=== PATIENT | female | born 1945 | race Caucasian/White ===

== ENCOUNTER 2016-12-22 22:42 | Emergency (ER) | payer MEDICARE ==
--- NOTE | 2016-12-22 23:51 | Emergency Department Record ---
History of Present Illness - General Chief complaint: Extremity Problem Stated complaint: ARM RED AND HOT Time Seen by Provider: 12/22/16 23:23 Source: Patient Mode of Arrival: Ambulatory Limitations: No limitations - History of Present Illness Initial comments: The patient is here due to R arm cellulitis. She was seen in the yesterday and started on Clindamycin orally. Today the redness is very slightly worse than yesterday. The patient states the pain is the same in the arm. She denies any fever, chills, or trauma. MD Complaint: Extremity pain Onset/Timin -: Days(s) Location: Right, Elbow, Forearm Severity scale (1-10): 6 Quality: Burning, Sharp Consistency: Constant, Getting worse Improves with: Nothing Worsens with: Palpation - Related Data Home Medications Medication Instructions Recorded Confirmed Last Taken Metoprolol Tartrate [Lopressor] 50 mg PO BID 08/28/14 12/06/15 12/22/16 Metformin HCl 500 mg PO BID 06/11/15 12/22/16 12/22/16 Atorvastatin Calcium 10 mg PO DAILY 90 Days 12/21/16 12/22/16 Allergies Allergy/AdvReac Type Severity Reaction Status Date / Time lisinopril Allergy Severe PT UNSURE Verified 12/06/15 18:15 OF REACTION Travel Screening - Travel/Exposure Within Last 30 Days Have you traveled within the last 30 days?: No - Travel Symptoms Symptom Screening: None Review of Systems Constitutional: Reports: Malaise. Denies: Chills, Fever Eyes: Denies: Eye discharge ENT: Denies: Congestion Respiratory: Denies: Cough, Dyspnea Past Medical History - SOCIAL HISTORY Smoking Status: Never smoker - RESPIRATORY Hx Respiratory Disorders: No - CARDIOVASCULAR Hx Cardio Disorders: Yes Hx Hypertension: Yes Comment:: high cholesterol - NEURO Hx Neuro Disorders: No - GI Hx GI Disorders: No - Hx Genitourinary Disorders: Yes Hx Renal Disease: Yes (only has L) - ENDOCRINE Hx Endocrine Disorders: Yes Hx Diabetes: Yes - MUSCULOSKELETAL Hx Musculoskeletal Disorders: Yes Hx Back Injury: Yes - PSYCH Hx Psych Problems: No - HEMATOLOGY/ONCOLOGY Hx Hematology/Oncology Disorders: No Family Medical History Any Significant Family History?: Yes Hx Diabetes: Father, Mother Hx Heart Disease: Father, Mother, Grandparents Physical Exam - General General Appearance: Alert, Cooperative, No acute distress - Head Head exam: Atraumatic, Normocephalic, Normal inspection - Eye Eye exam: Normal appearance, PERRL - Neck Neck exam: Normal inspection, Full ROM. negative: Tenderness - Respiratory Respiratory exam: Normal lung sounds bilaterally. negative: Respiratory distress - Cardiovascular Cardiovascular Exam: Regular rate, Normal rhythm, Normal heart sounds - GI/Abdominal GI/Abdominal exam: Soft, Normal bowel sounds. negative: Tenderness - Extremities Extremities exam: Full ROM, Normal capillary refill, Tenderness. negative: Normal inspection (There is a cellulitis to the R lateral forearm.) Image of Full Body: 1 - Cellulitis. - Skin Skin exam: Erythema (to the R lateral forearm.), Rash Course Vital Signs 12/22/16 23:13 Temperature 97.9 F Pulse Rate [ 78 Pulse Ox Probe] Respiratory 18 Rate Blood Pressure 173/73 [Left Arm] Pulse Ox 96 - Reevaluation(s) Reevaluation #1: The patient is doing well at this time. She is to return to the ER at 9am for repeat IV Abx and a re-evaluation. 12/23/16 00:44 Medical Decision Making - Lab Data Result diagrams: 12/23/16 00:04 12/23/16 00:04 Disposition Disposition: Discharge Clinical Impression: Cellulitis Qualifiers: Site of cellulitis: unspecified site Qualified Code(s): L03.90 - Cellulitis, unspecified Disposition: Home, Self-Care Condition: (1) Good Instructions: Cellulitis (ED) Additional Instructions: Please continue your regular medicines and please return to the ER at 9am for recheck and repeat IV Abx. Forms: Patient Portal Access Time of Disposition: 00:46 Quality - Quality Measures Quality Measures: N/A - Blood Pressure Screening View Details: Yes Does Patient Have Any of the Following: No Blood Pressure Classification: Hypertensive Reading Systolic Measurement: 173 Diastolic Measurement: 73 Screening for High Blood Pressure: < Pre-Hypertensive BP, F/U Documented > [ G8950] Pre-Hypertensive Follow-up Interventions: Referral to alternative/primary care provider.
[2016-12-23 00:08] LABS: BASO % 0.4 % (0-6); EOS % 2.7 % (0-6); GRAN % 61.4 % (47-80); HEMATOCRIT 39.3 % (35.0-47.0); LYMPH % 27.3 % (16-45); MEAN CELL VOLUME 91.2 fl (81-97); MEAN CORPUSCULAR HEMOGLOBIN 30.2 pg (27-33); MEAN CORPUSCULAR HGB CONC 33.1 g/dl (32-36); MONO % 8.2 % (0-9); PLATELET COUNT 299 K/uL (130-400); RED BLOOD COUNT 4.31 M/uL (3.80-5.40); WHITE BLOOD COUNT W/O DIFF 8.9 K/uL (4.2-12.2)
[2016-12-23] MEDS: CLINDAMYCIN 600MG/4ML VIAL 600 MG in 0.9 % SODIUM CHLORIDE 100ML 100 ML IV ONE (00:08)
[2016-12-23 00:23] LABS: ANION GAP 10.5 (7-16); BLOOD UREA NITROGEN 22 mg/dL (7-17); C-REACTIVE PROTEIN 5.1 mg/dL (0.0-0.9); CARBON DIOXIDE 24.5 mmol/L (22-30); CREATININE 0.8 mg/dL (0.52-1.04); EST GLOMERULAR FILTRATION RATE > 60 ml/min; GLUCOSE,RANDOM 107 mg/dL (70-110)
== END 2016-12-23 01:07 | disposition home or self-care (01) ==
LOC: ER 22:42
DX: L03.113 Cellulitis of right upper limb (principal)
CPT/HCPCS: 80048; 85025; 86140; 96365; 99284

== ENCOUNTER 2016-12-23 08:54 | Emergency (ER) | payer MEDICARE ==
[2016-12-23] MEDS: CLINDAMYCIN 600MG/50ML PREMIX 600 MG/50 ML BAG IVPB ONE (09:13)
--- NOTE | 2016-12-23 10:00 | Emergency Department Record ---
History of Present Illness - General Chief Complaint: Wound, check Stated Complaint: WOUND RECHECK Time Seen by Provider: 12/23/16 09:52 Source: Patient, RN notes reviewed Mode of arrival: Ambulatory - History of Present Illness Initial Comments: here for a recheck of arm infection and skin abscesses times two and getting better. Seen at [facility] 2 days ago and on clindamycin 300 mg every 6 hours. Patient seen in Ed last night and given clindamycin 600 mg IV and she came for a recheck of the right arm. The cellulitis is improving today. She isn't toxic and she is visiting from [facility]. Initial Visit For: Cellulitis, Other Returns Today for: Wound recheck Symptoms Since Prior Visit: No new symptoms Associated Symptoms: None Treatments Prior to Arrival: Dressings - Related Data Home Medications Medication Instructions Recorded Confirmed Last Taken Metoprolol Tartrate [Lopressor] 50 mg PO BID 08/28/14 12/23/16 12/22/16 Metformin HCl 500 mg PO BID 06/11/15 12/23/16 12/22/16 Atorvastatin Calcium 10 mg PO DAILY 90 Days 12/21/16 12/23/16 12/22/16 Previous Rx's Medication Instructions Recorded Sulfamethoxazole/Trimethoprim 1 each PO BID #20 tablet 12/23/16 [Bactrim Ds Tablet] Allergies Allergy/AdvReac Type Severity Reaction Status Date / Time lisinopril Allergy Severe PT UNSURE Verified 12/23/16 09:03 OF REACTION Travel Screening - Travel/Exposure Within Last 30 Days Have you traveled within the last 30 days?: No Review of Systems Reviewed: No additional complaints except as noted below Constitutional: Reports: As per HPI. Denies: Chills, Fever, Malaise, Night sweats, Weakness, Weight change Eyes: Reports: As per HPI. Denies: Eye discharge, Eye pain, Photophobia, Vision change ENT: Reports: As per HPI. Denies: Congestion, Dental pain, Ear pain, Epistaxis , Hearing loss, Throat pain Respiratory: Reports: As per HPI. Denies: Cough, Dyspnea, Hemoptysis, Stridor, Wheezes Cardiovascular: Reports: As per HPI. Denies: Arrhythmia, Chest pain, Dyspnea on exertion, Edema, Murmurs, Orthopnea, Palpitations, Paroxysmal nocturnal dyspnea, Rheumatic Fever, Syncope Endocrine: Reports: As per HPI. Denies: Fatigue, Heat or cold intolerance, Polydipsia, Polyuria Gastrointestinal: Reports: As per HPI. Denies: Abdominal pain, Constipation, Diarrhea, Hematemesis, Hematochezia, Melena, Nausea, Vomiting Genitourinary: Reports: As per HPI. Denies: Abnormal menses, Discharge, Dyspareunia, Dysuria, Frequency, Hematuria, Incontinence, Retention, Urgency Musculoskeletal: Reports: As per HPI. Denies: Arthralgia, Back pain, Gout, Joint swelling, Myalgia, Neck pain Skin: Reports: As per HPI, Rash. Denies: Bruising, Change in color, Change in hair/nails, Lesions, Pruritus Neurological: Reports: As per HPI. Denies: Abnormal gait, Confusion, Headache, Numbness, Paresthesias, Seizure, Tingling, Tremors, Vertigo, Weakness Psychiatric: Reports: As per HPI. Denies: Anxiety, Auditory hallucinations, Depression, Homicidal thoughts, Suicidal thoughts, Visual hallucinations Hematological/Lymphatic: Reports: As per HPI. Denies: Anemia, Blood Clots, Easy bleeding, Easy bruising, Swollen glands Past Medical History - SOCIAL HISTORY Smoking Status: Never smoker Alcohol Use: None Drug Use: None - RESPIRATORY Hx Respiratory Disorders: No - CARDIOVASCULAR Hx Cardio Disorders: Yes Hx Hypertension: Yes Comment:: high cholesterol - NEURO Hx Neuro Disorders: No - GI Hx GI Disorders: No - Hx Genitourinary Disorders: Yes Hx Renal Disease: Yes (only has L) - ENDOCRINE Hx Endocrine Disorders: Yes Hx Diabetes: Yes - MUSCULOSKELETAL Hx Musculoskeletal Disorders: Yes Hx Back Injury: Yes - PSYCH Hx Psych Problems: No - HEMATOLOGY/ONCOLOGY Hx Hematology/Oncology Disorders: No Family Medical History Any Significant Family History?: Yes Hx Diabetes: Father, Mother Hx Heart Disease: Father, Mother, Grandparents Physical Exam - General General Appearance: Alert, Oriented x3, Cooperative, Mild distress - Head Head exam: Normal inspection - Eye Eye exam: Normal appearance, PERRL Pupils: Normal accommodation - ENT ENT exam: Normal exam, Mucous membranes moist, Normal external ear exam, Normal orophraynx, TM's normal bilaterally Ear exam: Normal external inspection. negative: External canal tenderness Nasal Exam: Normal inspection. negative: Discharge, Sinus tenderness Mouth exam: Normal external inspection, Tongue normal Teeth exam: Normal inspection. negative: Dental caries Throat exam: Normal inspection. negative: Tonsillar erythema, Tonsillar exudate - Neck Neck exam: Normal inspection, Full ROM. negative: Tenderness - Respiratory Respiratory exam: Normal lung sounds bilaterally. negative: Respiratory distress - Cardiovascular Cardiovascular Exam: Regular rate, Normal rhythm, Normal heart sounds - GI/Abdominal GI/Abdominal exam: Soft, Normal bowel sounds. negative: Tenderness - Rectal Rectal exam: Deferred - exam: Deferred - Extremities Extremities exam: Normal inspection, Full ROM, Normal capillary refill. negative: Tenderness - Back Back exam: Reports: Normal inspection, Full ROM. Denies: Muscle spasm, Rash noted, Tenderness - Neurological Neurological exam: Alert, Normal gait, Oriented X3, Reflexes normal - Psychiatric Psychiatric exam: Normal affect, Normal mood - Skin Skin exam: Warm, Other (cellulitis of the right arm and two furuncles one by wrist is drying up and one by elbow still swollen and has a white spot she squeezed and got pus out of it.) Course Vital Signs 12/23/16 08:59 Temperature 97.5 F L Pulse Rate 68 Respiratory 18 Rate Blood Pressure 158/73 Pulse Ox 96 Disposition Clinical Impression: Cellulitis Qualifiers: Site of cellulitis: extremity Site of cellulitis of extremity: upper extremity Laterality: right Qualified Code(s): L03.113 - Cellulitis of right upper limb Disposition: Home, Self-Care Condition: (1) Good Instructions: Wound Infection (ED) Additional Instructions: follow up with Dr. Gaspar tomorrow at 9 am in the office. Prescriptions: Sulfamethoxazole/Trimethoprim [Bactrim Ds Tablet] 1 each PO BID #20 tablet Forms: Patient Portal Access Time of Disposition: 10:07 Quality - Quality Measures Quality Measures: N/A - Blood Pressure Screening Does Patient Have Any of the Following: No Blood Pressure Classification: Hypertensive Reading Systolic Measurement: 158 Diastolic Measurement: 73 Screening for High Blood Pressure: Patient Exclusion, Hx of HTN [G9744]
== END 2016-12-23 10:32 | disposition home or self-care (01) ==
LOC: ER 08:54
DX: L03.113 Cellulitis of right upper limb (principal)
CPT/HCPCS: 96374; 99282

== ENCOUNTER 2017-03-16 16:42 | Emergency (ER) | payer MEDICARE ==
[2017-03-16] MEDS ORDERED: MECLIZINE 25 MG TABLET PO ONE (16:58)
[2017-03-16] MEDS ORDERED: ONDANSETRON 4 MG ODT TABLET SL ONE (16:58)
--- NOTE | 2017-03-16 17:04 | Emergency Department Record ---
History of Present Illness - General Chief Complaint: Dizziness Stated Complaint: DIZINESS,DISCHARGE FROM [facility] Time Seen by Provider: 03/16/17 16:50 Source: Patient, Family Mode of Arrival: Ambulatory Limitations: No limitations - History of Present Illness Initial Comments: 71 yo female presents with dizziness that started this morning. She woke up and went to the restroom. Upon laying back down she developed a feeling like the room was moving. The symptoms wound improve if she were still then worsening when she would lay back again. No history of similar symptoms. No changes to the vision, speech, coordination, thoughts, or feeling. No double vision. She also noted a pus like drainage from the umbilicus today. No fever. No vomiting. No diarrhea. PCP is Kelly. العراقي Complaint: Dizziness -: Awoke with symptoms Timing: Awoke with symptoms Description: "Room spinning" History of Same: No History of Trauma: No Improves With: Remaining still Worsens With: Position Associated Symptoms: Denies other symptoms - Scott Coma Scale Eye Response: (4) Open spontaneously Motor Response: (6) Obeys commands Verbal Response: (5) Oriented [place] Total: 15 - Symptoms of Stroke Symptoms of stroke: Dizziness - Related Data Previous Rx's Medication Instructions Recorded Clotrimazole [Antifungal] 30 gm TP BID #1 cream..g. 03/16/17 Meclizine HCl [Antivert] 25 mg PO Q8H #20 tablet 03/16/17 Allergies Allergy/AdvReac Type Severity Reaction Status Date / Time lisinopril Allergy Severe PT UNSURE Verified 12/23/16 09:03 OF REACTION Review of Systems Constitutional: Denies: Chills, Fever, Malaise, Weakness Eyes: Denies: Eye discharge, Eye pain, Photophobia, Vision change ENT: Denies: Congestion, Ear pain, Epistaxis, Throat pain Respiratory: Denies: Cough, Dyspnea, Hemoptysis, Stridor, Wheezes Cardiovascular: Denies: Chest pain, Palpitations, Syncope Endocrine: Denies: Polydipsia, Polyuria Gastrointestinal: Reports: Nausea. Denies: Abdominal pain, Diarrhea, Vomiting Genitourinary: Denies: Dysuria, Urgency Musculoskeletal: Denies: Arthralgia, Back pain, Joint swelling, Myalgia, Neck pain Skin: Reports: As per HPI, Rash. Denies: Bruising, Change in color Neurological: Reports: Vertigo. Denies: Abnormal gait, Confusion, Headache, Numbness, Paresthesias, Seizure, Tingling, Tremors, Weakness Psychiatric: Denies: Anxiety Hematological/Lymphatic: Denies: Blood Clots, Easy bleeding, Easy bruising, Swollen glands Past Medical History - SOCIAL HISTORY Smoking Status: Never smoker Drug Use: None - RESPIRATORY Hx Respiratory Disorders: No - CARDIOVASCULAR Hx Cardio Disorders: Yes Hx Hypertension: Yes Comment:: high cholesterol - NEURO Hx Neuro Disorders: No - GI Hx GI Disorders: No - Hx Genitourinary Disorders: Yes Hx Renal Disease: Yes (only has L) - ENDOCRINE Hx Endocrine Disorders: Yes Hx Diabetes: Yes - MUSCULOSKELETAL Hx Musculoskeletal Disorders: Yes Hx Back Injury: Yes - PSYCH Hx Psych Problems: No - HEMATOLOGY/ONCOLOGY Hx Hematology/Oncology Disorders: No Family Medical History Hx Diabetes: Father, Mother Hx Heart Disease: Father, Mother, Grandparents Physical Exam - General General Appearance: Alert, Oriented x3, Cooperative, No acute distress Limitations: No limitations - Head Head exam: Atraumatic, Normocephalic, Normal inspection - Eye Eye exam: Normal appearance, PERRL, EOMI, Nystagmus (horizontal to the left, fatigues). negative: Conjunctival injection, Periorbital swelling, Periorbital tenderness, Scleral icterus Pupils: Normal accommodation. negative: Irregular - ENT ENT exam: Normal exam, Mucous membranes moist, Normal orophraynx, TM's normal bilaterally Ear exam: Normal external inspection Nasal Exam: Normal inspection. negative: Discharge, Dried blood Mouth exam: Normal external inspection. negative: Muffled voice Teeth exam: Normal inspection Throat exam: Normal inspection - Neck Neck exam: Normal inspection, Full ROM. negative: Tenderness - Respiratory Respiratory exam: Normal lung sounds bilaterally. negative: Respiratory distress - Cardiovascular Cardiovascular Exam: Regular rate, Normal rhythm, Normal heart sounds Peripheral Pulses: 2+: Radial (R), Radial (L) - GI/Abdominal GI/Abdominal exam: Soft. negative: Tenderness - Rectal Rectal exam: Deferred - exam: Deferred - Extremities Extremities exam: Normal inspection, Full ROM, Normal capillary refill. negative: Tenderness - Back Back exam: Reports: Normal inspection, Full ROM. Denies: Muscle spasm, Rash noted, Tenderness - Neurological Neurological exam: Alert, CN II-XII intact, Normal gait, Oriented X3, Reflexes normal, Other (Normal FTN, No PND, No dysmetria, ). negative: Altered, Motor sensory deficit - Psychiatric Psychiatric exam: Normal affect, Normal mood - Skin Skin exam: Erythema (umbillical erythema, no pus no abscess, no swelling or mass ) Course - Reevaluation(s) Reevaluation #1: 03/16/17 17:37 The labs were reviewed No acute changes on the CBC, CMP The HCT result was negative for any acute changes I discussed with the patient likely peripheral vertigo with the left nystagmus, fatigues, worse with positions She will be provided Antivert The umbilical area is most consistent with tinea. No abscess felt or seen. No pus on examination I will start her on a topical antifugal with recommendation for antibiotic if pus or spreading cellulitis develop 03/16/17 17:40 BP rechecked and much improved Medical Decision Making - Lab Data Result diagrams: 03/16/17 17:10 03/16/17 17:10 Disposition Disposition: Discharge Clinical Impression: Vertigo, Tinea corporis Disposition: Home, Self-Care Condition: (1) Good Instructions: Tinea Corporis (ED), Vertigo (ED) Additional Instructions: Take the Antivert every 6 hours as needed Call Dr Gaspar tomorrow for close follow up of this ER visit and the results of the tests Prescriptions: Clotrimazole [Antifungal] 30 gm TP BID #1 cream..g. Meclizine HCl [Antivert] 25 mg PO Q8H #20 tablet Forms: Patient Portal Access Time of Disposition: 17:40 Quality - Quality Measures Quality Measures: N/A - Blood Pressure Screening Does Patient Have Any of the Following: No Blood Pressure Classification: Pre-Hypertensive BP Reading Systolic Measurement: 139 Diastolic Measurement: 80 Screening for High Blood Pressure: < Pre-Hypertensive BP, F/U Documented > [ G8950] Pre-Hypertensive Follow-up Interventions: Referral to alternative/primary care provider.
[2017-03-16 17:14] LABS: BASO % 0.6 % (0-6); EOS % 2.9 % (0-6); GRAN % 53.6 % (47-80); HEMATOCRIT 42.5 % (35.0-47.0); HEMOGLOBIN 13.8 gm/dl (11.6-16.0); LYMPH % 32.7 % (16-45); MEAN CELL VOLUME 90.2 fl (81-97); MEAN CORPUSCULAR HEMOGLOBIN 29.3 pg (27-33); MEAN CORPUSCULAR HGB CONC 32.5 g/dl (32-36); MEAN PLATELET VOLUME 9.5 fl (7.4-10.4); MONO % 10.2 % (0-9); PLATELET COUNT 296 K/uL (130-400); RED BLOOD COUNT 4.71 M/uL (3.80-5.40); RED CELL DISTRIBUTION WIDTH 12.9 % (11.5-14.5); WHITE BLOOD COUNT W/O DIFF 6.5 K/uL (4.2-12.2)
[2017-03-16 17:33] LABS: ALB/GLOB RATIO 1.2 (1.1-1.8); ALBUMIN 4.3 g/dL (4.0-5.0); ALKALINE PHOSPHATASE 87 U/L (35-104); ALT/SGPT 21 U/L (<33); AST/SGOT 20 U/L (10.0-35.0); BLOOD UREA NITROGEN 15 mg/dL (8-23); CREATININE 0.7 mg/dL (0.5-0.9); EST GLOMERULAR FILTRATION RATE > 60 mL/min; GLUCOSE,RANDOM 110 mg/dL (74-109)
--- NOTE | 2017-03-17 10:07 | CT SCAN REPORT ---
EXAM: CT OF THE BRAIN WITHOUT CONTRAST HISTORY: DIZZINESS. TECHNIQUE: CT of the brain without contrast was obtained. Comparison: None. FINDINGS: The globes are intact. The paranasal sinuses and mastoid air cells are well aerated. No displaced or depressed skull fracture. No intra or extraaxial hemorrhage. CT limited for evaluation of acute infarct. No CT evidence for large or territorial acute infarct. Mild diffuse atrophy with minor small vessel ischemic change. No mass or midline shift. IMPRESSION: NEGATIVE FOR ACUTE INTRACRANIAL ABNORMALITY. MILD ATROPHY AND SMALL VESSEL ISCHEMIC CHANGE. JOB NUMBER: [id number] [facility]
== END 2017-03-16 17:53 | disposition home or self-care (01) ==
LOC: ER 16:42
DX: R42 Dizziness and giddiness (principal); B35.4 Tinea corporis; I10 Essential (primary) hypertension; E11.9 Type 2 diabetes mellitus without complications
CPT/HCPCS: 70450; 80053; 85025; 99283; 99284

== ENCOUNTER 2018-06-20 11:59 | Observation (INO) | payer MEDICARE ==
[2018-06-20] MEDS ORDERED: ACETAMINOPHEN 500 MG TABLET PO PRN (12:12)
[2018-06-20] MEDS ORDERED: CLINDAMYCIN 600MG/50ML PREMIX 600 MG/50 ML BAG IVPB SCH (12:15)
[2018-06-20] MEDS ORDERED: PNEUM 13-VAL/PF 0.5 ML IM ONE (12:34)
[2018-06-20 13:27] LABS: BASO % 0.9 % (0-6); EOS % 2.9 % (0-6); GRAN % 54.3 % (47-80); HEMOGLOBIN 13.3 gm/dl (11.6-16.0); LYMPH % 36.3 % (16-45); MEAN CELL VOLUME 90.9 fl (81-97); MEAN CORPUSCULAR HEMOGLOBIN 28.8 pg (27-33); MEAN CORPUSCULAR HGB CONC 31.7 g/dl (32-36); MEAN PLATELET VOLUME 9.7 fl (7.4-10.4); MONO % 5.6 % (0-9); PLATELET COUNT 279 K/uL (130-400); RED BLOOD COUNT 4.62 M/uL (3.80-5.40); RED CELL DISTRIBUTION WIDTH 13.3 % (11.5-14.5); WHITE BLOOD COUNT W/O DIFF 5.5 K/uL (4.2-12.2)
[2018-06-20 13:47] LABS: BLOOD UREA NITROGEN 15 mg/dL (8-23); CREATININE 0.7 mg/dL (0.5-0.9); EST GLOMERULAR FILTRATION RATE > 60 mL/min; TOTAL PROTEIN 7.2 g/dL (6.6-8.7)
[2018-06-20 13:49] LABS: GLUCOSE,RANDOM 142 mg/dL (74-109)
[2018-06-20 13:51] LABS: ALT/SGPT 27 U/L (<33)
[2018-06-20] MEDS: CLINDAMYCIN 600MG/50ML PREMIX 600 MG/50 ML BAG IVPB SCH ×2 (13:51→22:16)
[2018-06-20 13:52] LABS: ALB/GLOB RATIO 1.3 (1.1-1.8); ALKALINE PHOSPHATASE 79 U/L (45-87); AST/SGOT 23 U/L (10.0-35.0)
--- NOTE | 2018-06-20 20:09 | History & Physical ---
History of Present Illness - Date of Service Date of Service for History & Physical: 06/20/18 - History of Present Illness Admitting Diagnosis: Abdominal skin infection History of Present Illness: Rhiannon Fuchs is a 72 y.o. F who was directly admitted by PCP d/ t abdominal abscess in [place]. States that this abdominal wound has been present x 1 week. Has been cleansing with saline and applying triple antibiotic ointment however pt thinks that it is worsening. Reports hx of abdominal wounds that present as a boil, pop and then usually go away with triple antibiotic ointment application. However, she does have a hx of an inpatient admission x 1 week in [place] for an abdominal abscess. D/t medical hx of DM, HTN and 1 kidney, it was thought to be best to admit the pt x 24 hours for IV antibiotic therapy. Drove self from [facility] to [facility]. PCP: DEYVI Lawton 06/20/18: Denies fever, excessive pain or chills. States that she has had a wound in the exact same spot in the past which is concerning to her. Does report a healing boil to right breast that she has been putting triple antibiotic ointment on. Denies having any other open areas at this time. Wound culture obtained, results pending. Travel Screening - Travel/Exposure Within Last 30 Days Have you traveled within the last 30 days?: No - Travel/Exposure Within Last Year Have you traveled outside the [place] in the last year?: No - Additonal Travel Details Have you been exposed to anyone with a communicable illness?: No - Travel Symptoms Symptom Screening: None Review of Systems Reviewed: No additional complaints except as noted below Constitutional: Denies: Chills, Fever, Malaise Respiratory: Denies: Cough Cardiovascular: Denies: Dyspnea on exertion Gastrointestinal: Denies: Abdominal pain, Diarrhea, Nausea, Vomiting Musculoskeletal: Reports: Arthralgia (knee pain) Skin: Reports: Lesions (LLQ of abdomen, outer right breast) Past Medical History - SOCIAL HISTORY Smoking Status: Never smoker Drug Use: None - RESPIRATORY Hx Respiratory Disorders: No - CARDIOVASCULAR Hx Cardio Disorders: Yes Hx Hypertension: Yes Comment:: high cholesterol - NEURO Hx Neuro Disorders: No - GI Hx GI Disorders: No Comment:: umbilical hernia - Hx Genitourinary Disorders: Yes Hx Renal Disease: Yes (only one kidney) - ENDOCRINE Hx Endocrine Disorders: Yes Hx Diabetes: Yes - MUSCULOSKELETAL Hx Musculoskeletal Disorders: Yes Hx Back Injury: Yes - PSYCH Hx Psych Problems: No - HEMATOLOGY/ONCOLOGY Hx Hematology/Oncology Disorders: No Family Medical History Any Significant Family History?: Yes Hx Diabetes: Father, Mother Hx Heart Disease: Father, Mother, Grandparents H&P Meds/Allergies - Allergies Allergies: Allergies Allergy/AdvReac Type Severity Reaction Status Date / Time lisinopril Allergy Severe Angioedema Unverified 06/20/18 10:34 - Active Medications Active Medications: Current Medications Acetaminophen (Tylenol 500mg Tab) 1,000 mg PO Q6H PRN PRN Reason: PAIN - MILD TO MODERATE (1-7) Atorvastatin Calcium (Lipitor) 10 mg PO DAILY [facility] Clindamycin Phosphate (Cleocin 600 [id number]) 600 mg in 50 mls @ 100 mls/ hr IVPB Q8HR [facility] Last Infusion: 06/20/18 14:39 Dose: Infused Metformin HCl (Glucophage Ir) 500 mg PO BID [facility] Metoprolol Tartrate (Lopressor) 50 mg PO BID [facility] Physical Exam - Vital Signs Vital Signs: Vital Signs - Last 24 Hrs Temp Pulse Resp BP Pulse Ox 06/20/18 15:41 75 18 06/20/18 12:05 98.4 F 75 18 144/91 95 - General General Appearance: Alert, Oriented x3, Cooperative, No acute distress Limitations: No limitations - Head Head exam: Normocephalic - Eye Eye exam: Normal appearance - ENT ENT exam: Normal exam, Mucous membranes moist - Respiratory Respiratory exam: negative: Accessory muscle use, Respiratory distress - GI/Abdominal GI/Abdominal exam: Soft. negative: Tenderness - Rectal Rectal exam: Deferred - exam: Deferred - Back Back exam: Reports: Normal inspection - Neurological Neurological exam: Alert, CN II-XII intact, Oriented X3 - Psychiatric Psychiatric exam: Normal affect, Normal mood - Skin Skin exam: Dry, Normal color, Warm Type of lesion: Abscess Distribution of rash: Abdomen (LLQ) Description of rash: Discharge (serosanguineous ), Erythematous, Vesicular Results - Labs Result Diagrams: 06/20/18 10:30 06/20/18 10:30 Labs Last 24 Hours: Laboratory Results - last 24 hr 06/20/18 06/20/18 06/20/18 10:30 10:30 10:30 WBC 5.5 RBC 4.62 Hgb 13.3 Hct 42.0 MCV 90.9 MCH 28.8 MCHC 31.7 L RDW 13.3 Plt Count 279 MPV 9.7 Gran % 54.3 Neutrophils % Not Reportable Lymphocytes % 36.3 Monocytes % 5.6 Eosinophils % 2.9 Basophils % 0.9 Lymphocytes Not Reportable Monocytes Not Reportable ESR 30 Sodium 143 Potassium 4.3 Chloride 105 Carbon Dioxide 25.0 Anion Gap 13.0 BUN 15 Creatinine 0.7 Estimated GFR > 60 Random Glucose 142 H Calcium 9.3 Total Bilirubin 0.40 AST 23 ALT 27 Alkaline Phosphatase 79 Total Protein 7.2 Albumin 4.0 Globulin 3.2 Albumin/Globulin Ratio 1.3 VTE H&P Assessment - Risk for VTE Risk for VTE: Yes Risk Level: Moderate Risk Assessment Date: 06/20/18 Risk Assessment Time: 12:45 VTE Orders Placed or Will Be Placed: Yes Plan - Inpatient Certification Inpatient Certification: Admit to inpatient care: Based on my medical assessment, after consideration of patient's risk factors (age, co-morbidities and patient presenting symptoms and acuity), I expect that this patient will remain in the hospital greater than or equal to two midnights and that the services needed warrant inpatient care because: Patient Risk Factors: [] Estimated length of stay: [] The patient may reasonably be expected to be discharged or transferred to a hospital within 96 hours after admission to [facility]. Services needed: [] Post hospital care (if known): [] I certify that my determination is in accordance with my understanding of Medicare requirements for reasonable and necessary inpatient services. - Detailed Diagnosis and Plan (1) Cellulitis of left abdominal wall Current Visit: Yes Status: Acute Base Code: L03.311 - CELLULITIS OF ABDOMINAL WALL Comment: 06/20/18: -1cm in diameter open area with 4 cm of erythema surrounding on LLQ, serosanguienous drainage present -Hx of multple abdominal wound boil/abscess, has had 1 week inpatient admission in the past -WBC 5.5, afebrile, denies pain or chills -Suspect Staph infection, trial Clindamycin 600mg IV q. 8 hours -Wound culture obtained prior to starting antibiotics, results pending (2) DVT prophylaxis Current Visit: Yes Status: Acute Base Code: [id number] - Comment: 06/20/18: -Moderate risk d/t age -Nursing to encourage frequent ambulation as there are no mobility issues (3) Full code status Current Visit: Yes Status: Acute Base Code: Z78.9 - OTHER SPECIFIED HEALTH STATUS Comment: 06/20/18: -Full code (4) Diabetes mellitus type II, controlled Current Visit: Yes Status: Acute Base Code: E11.9 - TYPE 2 DIABETES MELLITUS WITHOUT COMPLICATIONS Comment: 06/20/18: -Continue home dose of Metformin 500mg PO BID
[2018-06-20] MEDS: METOPROLOL TART 50 MG TABLET PO SCH (22:16)
[2018-06-20] MEDS: METFORMIN 500 MG TABLET PO SCH (22:16)
[2018-06-21] MEDS: CLINDAMYCIN 600MG/50ML PREMIX 600 MG/50 ML BAG IVPB SCH ×2 (06:33→13:43)
[2018-06-21] MEDS: METOPROLOL TART 50 MG TABLET PO SCH (09:34)
[2018-06-21] MEDS: METFORMIN 500 MG TABLET PO SCH (09:34)
[2018-06-21] MEDS ORDERED: ATORVASTATIN 20 MG TABLET PO SCH (10:00)
--- NOTE | 2018-06-21 15:36 | Discharge Summary ---
Providers Discharge Summary Date: 06/21/18 Date of admission: 06/20/18 11:59 Attending physician: GUI MON Primary care physician: Iveth Ordoñez N.P. Physical Exam - Vital Signs Vital Signs: Vital Signs - Last 24 Hrs Temp Pulse Resp BP Pulse Ox 06/21/18 09:00 66 18 06/21/18 06:30 97.8 F 66 18 119/56 95 06/20/18 20:00 97.9 F 96 H 18 171/72 96 06/20/18 15:41 75 18 - General General Appearance: Alert, Oriented x3, Cooperative, No acute distress Limitations: No limitations - Head Head exam: Normocephalic - Eye Eye exam: Normal appearance - ENT ENT exam: Normal exam, Mucous membranes moist - Respiratory Respiratory exam: negative: Accessory muscle use, Respiratory distress - GI/Abdominal GI/Abdominal exam: Soft. negative: Tenderness - Rectal Rectal exam: Deferred - exam: Deferred - Back Back exam: Reports: Normal inspection - Neurological Neurological exam: Alert, CN II-XII intact, Oriented X3 - Psychiatric Psychiatric exam: Normal affect, Normal mood - Skin Skin exam: Dry, Normal color, Warm Type of lesion: Abscess Distribution of rash: Abdomen ([facility]) Description of rash: Discharge (serosanguineous ), Erythematous, Vesicular Hospitalization - Hospitalization Admission Diagnosis: Abdominal skin infection - Hospitalization Course Hospital Course: Rhiannon Fuchs is a 72 y.o. F who was directly admitted by PCP d/ t abdominal abscess in [facility]. States that this abdominal wound has been present x 1 week. Has been cleansing with saline and applying triple antibiotic ointment however pt thinks that it is worsening. Reports hx of abdominal wounds that present as a boil, pop and then usually go away with triple antibiotic ointment application. However, she does have a hx of an inpatient admission x 1 week in [place] for an abdominal abscess. D/t medical hx of DM, HTN and 1 kidney, it was thought to be best to admit the pt x 24 hours for IV antibiotic therapy. Drove self from [facility] to [facility]. PCP: DEYVI Lawton 06/20/18: Denies fever, excessive pain or chills. States that she has had a wound in the exact same spot in the past which is concerning to her. Does report a healing boil to right breast that she has been putting triple antibiotic ointment on. Denies having any other open areas at this time. Wound culture obtained, results pending. 06/21/18: The patient was evaluated on rounds this morning. Her abdominal wall abscess still is dressed with minimal pus like discharge. There is some induration of the surrounding skin but there is no tenderness to palpation of the abdominal wall. She has remained afebrile and has not elevation in white count. The patient is to be discharged home for further care outpatient. Abnormal Labs: Abnormal Lab Results 06/20/18 06/20/18 Range/Units 10:30 10:30 MCHC 31.7 L (32-36) g/dl Random Glucose 142 H (74-109) mg/dL Discharge Medications - Discharge Medications Prescriptions: Clindamycin HCl [Cleocin HCl] 300 mg PO BID 6 Days #12 capsule Home Medications: Ambulatory Orders Clindamycin HCl [Cleocin HCl] 300 mg PO BID 6 Days #12 capsule 06/21/18 [Last Taken Unknown] Discharge Plan - Discharge Instructions Activity at Discharge: Resume Usual Activities As Tolerated Diet at Discharge: Diabetic Diet Wound Primary Dressing Type: Non-Adherent Gauze Pad Instructions: Cellulitis (DC) Additional Instructions: Take Clindamycin 300mg twice daily for the next 6 days. If you begin to have diarrhea discontinue medication and call your PCP for further instructions. Dress the wound with non-adherent dressings provided. Do not apply any topical antibacterials and keep the area clean. Follow up with your PCP Iveth Ordoñez NP as scheduled here at the 2 Activity: TOLERATED 2 Diet: TOLERATED 2 Consults: [] 2 Follow Up: []WITH [facility] [place]....[facility] [place] [facility] 06/28/18 AT 1:40 PM 2 Dressing/Wound Care: (Type) (Change) KEEP AREA COVERED, DO NOT APPLY ANTIBIOTIC OINTMENT 2 Additional: [] TAKE ANTIBIOTIC PRESCRIBED Quality Measures - Quality Measures Quality Measures: Advance Directives, Documentation of Current Medications in Medical Record, Elder Maltreatment Screen and Follow-Up Plan, Screening for High Blood Pressure and F/U Documented - Current Medications Quality Measure: Measure #130: Documentation of Current Medications Documentation of Current Medications: <Current Medications Documented/Reviewed> [G8427] - Blood Pressure Screening Quality Measure: Screening for High Blood Pressure and Follow-Up Documented Does Patient Have Any of the Following: Active Dx of HTN Blood Pressure Classification: Normal BP Reading Systolic Measurement: 119 Diastolic Measurement: 56 Screening for High Blood Pressure: Patient Exclusion, Hx of HTN [G9744] - Advance Directives Quality Measure: Measure #47: Care Plan Advance Directives Established: No Advance Directives Information Provided To Patient: No Advance Directives on File: No Living Will: No Power of Wraparound Facilitator: No Advance Care Planning: <Care Plan/Decision Maker Not Decided; Discussed & Documented> [8524F] - Elder Abuse Suspicion Index Screening: Elder Abuse Suspicion Index Screening Rely on people for bathing, dressing, shopping, banking, etc: No Prevented from getting food, clothes, medication, etc: No Forced to sign papers or use money against will: No Feel afraid, touched in ways not wanted or hurt physically: No Poor eye contact, withdrawn, malnourished, cuts or bruises: No Screening Result: Negative result EASI Reference Information: Leanne ZAMORA, Eva C, Pritesh D, Lori Alatorre.Development and validation of a tool to assist physicians identification of elder abuse: The Elder Abuse Suspicion Index (EASI ). Journal of Elder Abuse and Neglect, 2008; 20 (3): 276-300. - Elder Maltreatment Screen Quality Measures: Elder Maltreatment Screen and Follow-Up Plan Elder Maltreatment Screen: <Negative, No Follow-Up Plan Required> [G8734]
== END 2018-06-21 15:55 | disposition home or self-care (01) ==
LOC: MEDSURG 11:59 → INTOOBSV 11:59
PROVIDERS: ADMIT Internal Medicine; ATTEND Internal Medicine
DX: L03.311 Cellulitis of abdominal wall (principal); I10 Essential (primary) hypertension; E11.9 Type 2 diabetes mellitus without complications; E78.00 Pure hypercholesterolemia, unspecified; Z90.5 Acquired absence of kidney
CPT/HCPCS: 80053; 85027; 85651; 90670; 90686; 99217; 99220

== ENCOUNTER 2018-10-22 18:53 | Emergency (ER) | payer MEDICARE ==
[2018-10-22 19:53] LABS: ABSOLUTE NEUTROPHIL COUNT 4.91; BASO % 0.7 % (0-6); EOS % 2.1 % (0-6); GRAN % 58.4 % (47-80); HEMATOCRIT 39.8 % (35.0-47.0); HEMOGLOBIN 12.9 gm/dl (11.6-16.0); LYMPH % 28.7 % (16-45); MEAN CELL VOLUME 91.7 fl (81-97); MEAN CORPUSCULAR HEMOGLOBIN 29.7 pg (27-33); MEAN CORPUSCULAR HGB CONC 32.4 g/dl (32-36); MEAN PLATELET VOLUME 9.5 fl (7.4-10.4); MONO % 10.1 % (0-9); PLATELET COUNT 248 K/uL (130-400); RED BLOOD COUNT 4.34 M/uL (3.80-5.40); WHITE BLOOD COUNT W/O DIFF 8.4 K/uL (4.2-12.2)
[2018-10-22 20:06] LABS: BLOOD UREA NITROGEN 18 mg/dL (8-23); CREATININE 0.6 mg/dL (0.5-0.9); EST GLOMERULAR FILTRATION RATE > 60 mL/min
[2018-10-22 20:09] LABS: GLUCOSE,RANDOM 152 mg/dL (74-109)
[2018-10-22] MEDS ORDERED: CEFTRIAXONE 1GM/50ML BAG 1 GM/50 ML BAG IVPB ONE (20:47)
--- NOTE | 2018-10-22 21:22 | Emergency Department Record ---
History of Present Illness - General Chief complaint: Facial Swelling Stated complaint: SWELLING IN HER FACE Time Seen by Provider: 10/22/18 19:27 Source: Patient Mode of Arrival: Ambulatory Limitations: No limitations - History of Present Illness Initial Comments: pt has erythema of face with a lesion mid forehead that is draining. no fevers. she has mild swelling of the eyelids Complaint: Facial swelling -: Hour(s) Symptoms: Facial swelling Severity: Mild Treatment Prior to Arrival: None - Related Data Previous Rx's Medication Instructions Recorded Cephalexin [Keflex] 500 mg PO QID #40 cap 10/22/18 Doxycycline Hyclate 100 mg PO BID #20 cap 10/22/18 Allergies Allergy/AdvReac Type Severity Reaction Status Date / Time lisinopril Allergy Severe Angioedema Verified 10/22/18 19:09 Travel Screening - Travel/Exposure Within Last 30 Days Have you traveled within the last 30 days?: No - Travel Symptoms Symptom Screening: None Review of Systems Reviewed: No additional complaints except as noted below Constitutional: Reports: As per HPI. Denies: Chills, Fever, Malaise, Night sweats, Weakness, Weight change Eyes: Reports: As per HPI. Denies: Eye discharge, Eye pain, Photophobia, Vision change ENT: Reports: As per HPI. Denies: Congestion, Dental pain, Ear pain, Epistaxis, Hearing loss, Throat pain Respiratory: Reports: As per HPI. Denies: Cough, Dyspnea, Hemoptysis, Stridor, Wheezes Cardiovascular: Reports: As per HPI. Denies: Arrhythmia, Chest pain, Dyspnea on exertion, Edema, Murmurs, Orthopnea, Palpitations, Paroxysmal nocturnal dyspnea, Rheumatic Fever, Syncope Endocrine: Reports: As per HPI. Denies: Fatigue, Heat or cold intolerance, Polydipsia, Polyuria Gastrointestinal: Reports: As per HPI. Denies: Abdominal pain, Constipation, Diarrhea, Hematemesis, Hematochezia, Melena, Nausea, Vomiting Genitourinary: Reports: As per HPI. Denies: Abnormal menses, Discharge, Dyspareunia, Dysuria, Frequency, Hematuria, Incontinence, Retention, Urgency Musculoskeletal: Reports: As per HPI. Denies: Arthralgia, Back pain, Gout, Joint swelling, Myalgia, Neck pain Skin: Reports: As per HPI. Denies: Bruising, Change in color, Change in hair/nails, Lesions, Pruritus, Rash Neurological: Reports: As per HPI. Denies: Abnormal gait, Confusion, Headache, Numbness, Paresthesias, Seizure, Tingling, Tremors, Vertigo, Weakness Psychiatric: Reports: As per HPI. Denies: Anxiety, Auditory hallucinations, Depression, Homicidal thoughts, Suicidal thoughts, Visual hallucinations Hematological/Lymphatic: Reports: As per HPI. Denies: Anemia, Blood Clots, Easy bleeding, Easy bruising, Swollen glands Past Medical History - SOCIAL HISTORY Smoking Status: Never smoker - RESPIRATORY Hx Respiratory Disorders: No - CARDIOVASCULAR Hx Cardio Disorders: Yes Hx Hypertension: Yes Comment:: high cholesterol - NEURO Hx Neuro Disorders: No - GI Hx GI Disorders: No Comment:: umbilical hernia - Hx Genitourinary Disorders: Yes Hx Renal Disease: Yes (only has L) - ENDOCRINE Hx Endocrine Disorders: Yes Hx Diabetes: Yes - MUSCULOSKELETAL Hx Musculoskeletal Disorders: Yes Hx Back Injury: Yes - PSYCH Hx Psych Problems: No - HEMATOLOGY/ONCOLOGY Hx Hematology/Oncology Disorders: No Family Medical History Any Significant Family History?: Yes Hx Diabetes: Father, Mother Hx Heart Disease: Father, Mother, Grandparents Physical Exam - General General Appearance: Alert, Oriented x3, Cooperative, No acute distress - Head Head exam: Normal inspection Image of Face/Head: 1 - erythema w mild swelling 2 - weeping lesion - Eye Eye exam: Normal appearance, PERRL, EOMI Pupils: Normal accommodation - ENT ENT exam: Normal exam, Mucous membranes moist, Normal external ear exam, Normal orophraynx Ear exam: Normal external inspection. negative: External canal tenderness Nasal Exam: Normal inspection. negative: Discharge, Sinus tenderness Mouth exam: Normal external inspection, Tongue normal Teeth exam: Normal inspection. negative: Dental caries Throat exam: Normal inspection. negative: Tonsillar erythema, Tonsillar exudate - Neck Neck exam: Normal inspection, Full ROM. negative: Tenderness - Respiratory Respiratory exam: Normal lung sounds bilaterally. negative: Respiratory distress - Cardiovascular Cardiovascular Exam: Regular rate, Normal rhythm, Normal heart sounds - GI/Abdominal GI/Abdominal exam: Soft, Normal bowel sounds. negative: Tenderness - Rectal Rectal exam: Deferred - exam: Deferred - Extremities Extremities exam: Normal inspection, Full ROM, Normal capillary refill. negative: Tenderness - Back Back exam: Reports: Normal inspection, Full ROM. Denies: Muscle spasm, Rash noted, Tenderness - Neurological Neurological exam: Alert, CN II-XII intact, Normal gait, Oriented X3 - Psychiatric Psychiatric exam: Normal affect, Normal mood - Skin Skin exam: Dry, Intact, Normal color, Warm Course Vital Signs 10/22/18 19:10 Temperature 97.7 F Pulse Rate 82 Respiratory 24 Rate Blood Pressure 206/94 Pulse Ox 97 Medical Decision Making - Lab Data Result diagrams: 10/22/18 19:50 10/22/18 19:50 Lab Results 10/22/18 10/22/18 Range/Units 19:50 19:50 WBC 8.4 (4.2-12.2) K/uL RBC 4.34 (3.80-5.40) M/uL Hgb 12.9 (11.6-16.0) gm/dl Hct 39.8 (35.0-47.0) % MCV 91.7 (81-97) fl MCH 29.7 (27-33) pg MCHC 32.4 (32-36) g/dl RDW 13.0 (11.5-14.5) % Plt Count 248 (130-400) K/uL MPV 9.5 (7.4-10.4) fl Gran % 58.4 (47-80) % Lymphocytes % 28.7 (16-45) % Monocytes % 10.1 H (0-9) % Eosinophils % 2.1 (0-6) % Basophils % 0.7 (0-6) % Absolute Neutrophils 4.91 Sodium 141 (136-145) mmol/L Potassium 4.8 H (3.4-4.5) mmol/L Chloride 104 (98-107) mmol/L Carbon Dioxide 26.0 (22-29) mmol/L Anion Gap 11.0 (7-16) BUN 18 (8-23) mg/dL Creatinine 0.6 (0.5-0.9) mg/dL Estimated GFR > 60 mL/min Random Glucose 152 H (74-109) mg/dL Calcium 9.3 (8.8-10.2) mg/dL NT-Pro-B Natriuret Pep 481.20 H (<125) pg/mL Disposition Disposition: Discharge Clinical Impression: Cellulitis and abscess of face Disposition: Home, Self-Care Condition: (1) Good Instructions: Cellulitis (ED) Additional Instructions: follow up with family doctor. return sooner if worse. sleep elevated. recheck by family doctor on wednesday Prescriptions: Doxycycline Hyclate 100 mg PO BID #20 cap Cephalexin [Keflex] 500 mg PO QID #40 cap Quality - Quality Measures Quality Measures: N/A - Blood Pressure Screening Does Patient Have Any of the Following: Active Dx of HTN Blood Pressure Classification: Hypertensive Reading Systolic Measurement: 206 Diastolic Measurement: 94 Screening for High Blood Pressure: Patient Exclusion, Hx of HTN [G9744]
--- NOTE | 2018-10-25 08:49 | RADIOLOGY REPORT ---
EXAM: CHEST, TWO VIEWS HISTORY: COUGH. TECHNIQUE: PA and lateral views of the chest were obtained. Comparison: None. FINDINGS: The heart size is at about the upper limits of normal. Mild thoracic dextroscoliosis. No definite acute infiltrate is seen and no pleural effusion or pneumothorax evident. Hypertrophic spurring in the spine. IMPRESSION: 1. THORACIC DEXTROSCOLIOSIS WITH HYPERTROPHIC SPURRING IN THE SPINE. 2. THE HEART SIZE IS AT ABOUT THE UPPER LIMITS OF NORMAL. 3. NO DEFINITE ACUTE INFILTRATE SEEN. JOB NUMBER: [id number] [facility]
== END 2018-10-22 21:45 | disposition home or self-care (01) ==
LOC: ER 18:53
DX: L03.211 Cellulitis of face (principal); I10 Essential (primary) hypertension
CPT/HCPCS: 71046; 80048; 83880; 85025; 96365; 99284; J0696